=== PATIENT | female | born 2000 | race Caucasian/White ===

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

== ENCOUNTER 2022-04-03 21:57 | Emergency (ER) | payer MEDICAID, SELFPAY ==
[2022-04-03 22:14] VITALS: BMI 42.0
[2022-04-03 22:17] VITALS: BP 124/85; PULSE 98; RESP 16; TEMP 36.9; O2SAT 97
--- NOTE | 2022-04-03 22:25 | ECG_ITS ---
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 Measurements Intervals Freeman Rate: 93 P: 66 IN: 128 QRS: 61 QRSD: 89 T: 50 QT: 326 QTc: 407 Interpretive Statements SINUS RHYTHM No previous ECG available for comparison Electronically Signed On 04-04-2022 12:51:34 CDT by Naya Garza M.D. [email or web address]
== END 2022-04-04 00:01 | disposition left against medical advice (07) ==
LOC: ER 22:00
PROVIDERS: Emergency Provider Family Medicine; PCP Pediatrics
DX: Z53.21 Procedure and treatment not carried out due to patient leaving prior to being seen by health care provider (principal)
CPT/HCPCS: 93005

== ENCOUNTER 2022-04-27 17:47 | Emergency (ER) | payer MEDICAID, SELFPAY ==
[2022-04-27 17:51] VITALS: BMI 36.6
[2022-04-27 17:57] VITALS: BP 137/96; PULSE 93; RESP 18; TEMP 36.4; O2SAT 99
--- NOTE | 2022-04-27 18:05 | W.ED.FEMALGU ---
HPI - Female Genitourinary General: Chief complaint: Urogenital-Female Stated complaint: wanting test for STD Time Seen by Provider: 04/27/22 18:05 History of Present Illness: 21-year-old female comes in today with complaints of unprotected sex. Patient reports she was notified by the boy that he had an outbreak of herpes after their intercourse 2 weeks ago. Patient denies any signs or symptoms at this time. Patient appears nontoxic. Patient reports no other concerns. Associated symptoms: Deny vaginal discharge Date of Last Menstrual Period: 02/21/22 Review of Systems Const: Denies: fever(s) : Denies: difficulty voiding, dysuria, genital lesions, vaginal odor or vaginal discharge PFSH ED PFSH: Medical History Irregular menses No pertinent past medical history neghx: htn,dm,thyroid,dvt/pe Surgical History History of placement of ear tubes Patient's mother states she's had 4 different tubes placed in her ears. She's had 7 surgeries on her left ear and 6 surgeries on her right ear. All Performed in [facility] Hx of laparoscopy (~04/10/15) Laparoscopy with excision of right paratubal cyst. Performed by Dr. Clay Oleary at [facility] in [place], [place]. Hx of tonsillectomy Patient had tonsils/adnoids removed at the age of 3 and 6 per mother Family History Grandmother Breast cancer maternal--- dx at age 60 Diabetes Maternal Heart disease Maternal Hypertension Maternal Mother Diabetes Hypertension Grandfather Diabetes Maternal Family/Other Stroke Maternal Great Grandmother Denies family history of Colon cancer Ovarian cancer Clotting disorder Hypercholesteremia Uterine cancer Thyroid disease Social History Smoking and tobacco status: current every day smoker (vape) Female Reproductive History: Date of last menstrual period: 02/21/22 Physical Exam Const: COMMON NORMALS: alert HENMT: COMMON NORMALS: normocephalic HEAD & SCALP: normocephalic Neck/C-Spine: COMMON NORMALS: full ROM Resp: COMMON NORMALS: normal respiratory effort Cardio: COMMON NORMALS: regular rate RATE: regular rate GI: COMMON NORMALS: non-tender Extremity: COMMON NORMALS: normal to inspection Neuro: SENSORIUM/ORIENTATION: Yes alert Skin: COMMON NORMALS: no rashes or lesions noted GENERAL SKIN EXAM: no rashes or lesions noted Course Vital Signs: Vital signs: Vital Signs Temperature 97.6 F 04/27/22 18:56 Pulse Rate 93 04/27/22 18:56 Respiratory Rate 18 04/27/22 18:56 Blood Pressure 137/96 04/27/22 18:56 Pulse Oximetry 99 04/27/22 18:56 Oxygen Delivery Me thod 04/27/22 17:57 MDM - Female Medical Decision Making Patient comes in today for concerns of exposure to STI. On exam patient appears well. Patient denies any lesions or sores or abnormal vaginal discharge. Patient was told that the partner she had intercourse with 2 weeks ago reported herpes outbreak, and was accusing her of illness. Differential diagnosis includes worried well, STI, anxiety. Urinalysis was contaminated with large amount of skin cells, hCG was negative. Outstanding for gonorrhea and chlamydia. Reviewed exam with patient with recommendations for further evaluation with primary care regarding concern for genital herpes. Patient denied any lesions at this time so no further evaluations was recommended. Patient reported understanding and agreed to plan. Lab Data Laboratory Results Urine Color Yellow (Yellow) 04/27/22 18:05 Urine Appearance Hazy (CLEAR) A 04/27/22 18:05 Urine pH 5 (5-7) 04/27/22 18:05 Ur Specific Winfred 1.025 (1.005-1.030) 04/27/22 18:05 Urine Protein Neg (Negative) 04/27/22 18:05 Urine Glucose (UA) Norm (Normal) 04/27/22 18:05 Urine Ketones Negative (Negative) 04/27/22 18:05 Urine Blood Neg (Negative) 04/27/22 18:05 Urine Nitrate Negative (Negative) 04/27/22 18:05 Urine Bilirubin Neg (Negative) 04/27/22 18:05 Urine Urobilinogen Norm mg/dL (Negative) 04/27/22 18:05 Ur Leukocyte Esterase 2+ (Negative) H 04/27/22 18:05 Urine RBC None /hpf (0-2) 04/27/22 18:05 Urine WBC 15-25 /hpf (0-5) H 04/27/22 18:05 Ur Squamous Epith Cells 40-55 /hpf (0-5) H 04/27/22 18:05 Ur Transition Epith Cell 5-10 /hpf 04/27/22 18:05 Amorphous Sediment Not Reportable 04/27/22 18:05 Urine Bacteria 2+ /hpf (NONE) H 04/27/22 18:05 Urine Mucus 2+ /hpf 04/27/22 18:05 Urine HCG, Qual Negative (Negative) 04/27/22 18:05 Discharge Plan Discharge Patient Disposition: Home Clinical Impression: Unprotected sexual intercourse Condition: Stable Prescriptions: No Action metformin 500 mg tablet extended release 24 hr 1,000 mg PO DAILY Qty: 60 6RF medroxyprogesterone [Provera] 10 mg tablet 10 mg PO QDAY Qty: 10 6RF Rx Instructions: take as directed if no menses by cycle day#36 Discharge Orders: Discharge ED (Routine); Ordered 04/27/22 Ordered By: Timi Naranjo Referrals: Oliver Garcia MD [Primary Care Provider] - Discharge Diet: Usual diet Discharge Activity: Increase activity as tolerated Patient Instructions: Safe Sex Practices (ED) Activity Restrictions/Additional Instructions: Drink plenty of water and fluids. You should always use condoms to protect against sexually transmitted illnesses. Follow-up with primary care for concerns relating to genital herpes. Return to emergency department for new concerns. Coding Level of Care Code ED Scoop Operator for Memo Fwd Exam Comprehensive
[2022-04-27 18:49] LABS: Add Urine Microscopic? YES; Bilirubin Urine Neg (Negative); Blood Urine Neg (Negative); Glucose Urine UA Norm (Normal); Ketones Urine Negative (Negative); Leukocyte Esterase Urine 2+ (Negative); Nitrate Urine Negative (Negative); Protein Urine Neg (Negative); Specific Gravity, Urine 1.025 (1.005-1.030); Urine Appearance Hazy (CLEAR); Urine Color Yellow (Yellow); Urobilinogen Urine Norm (Negative); pH Urine 5 (5-7)
[2022-04-27 18:50] LABS: Add Urine Culture? No; Bacteria Urine 2+ /hpf; Mucus Urine 2+ /hpf; Squamous Epithelial Cell Urine 40-55 /hpf (0-5); WBC Urine 15-25 /hpf (0-5)
[2022-04-27 18:56] VITALS: BP 137/96; PULSE 93; RESP 18; TEMP 36.4; O2SAT 99
== END 2022-04-27 18:58 | disposition home or self-care (01) ==
PROVIDERS: Emergency Provider Nurse Practitioner Family; PCP Pediatrics
DX: Z20.2 Contact with and (suspected) exposure to infections with a predominantly sexual mode of transmission (principal)
CPT/HCPCS: 81001; 81025; 87491; 87591; 99283

== ENCOUNTER 2022-06-18 20:20 | Emergency (ER) | payer MEDICAID, SELFPAY ==
[2022-06-18] VITALS (13 sets, daily range): BP systolic 120–155; BP diastolic 71–91; PULSE 108; RESP 18; TEMP 36.8; O2SAT 97–98; BMI 42.0
[2022-06-18 21:01] LABS: Basophils % 0.3 %; Eosinophils # 0.1 10^3/uL (0.0-0.8); Eosinophils % 0.8 %; Hematocrit 45.1 % (37.0-47.0); Lymphocytes # 4.1 10^3/uL (1.5-6.5); Lymphocytes % 42.8 %; Mean Corpuscular HGB Conc 33.3 g/dL (30.0-36.0); Mean Corpuscular Hemoglobin 30.5 pg (28.0-34.0); Mean Corpuscular Volume 91.7 fl (81-99); Mean Platelet Volume 9.3 fL (7.4-10.4); Monocytes # 0.8 10^3/uL (0.2-0.9); Monocytes % 8.1 %; Neutrophils # 4.53 10^3/uL (1.8-8.0); Neutrophils % 47.2 %; Nucleated Red Blood Cells % 0 %; Platelet Count 306 10^3/cmm (130-400); Red Blood Count 4.92 10^6/uL (4.1-5.3); Red Cell Distribution Width 12.7 % (12.1-15.1); White Blood Count 9.6 10^3/uL (4.5-13.0)
[2022-06-18 21:16] LABS: HCG, Serum Qual Negative (Negative)
[2022-06-18 21:29] LABS: Alanine Aminotransferase 56 U/L (0-33); Albumin Level 4.5 g/dL (3.5-5.2); Alkaline Phosphatase 86 U/L (35-105); Anion Gap 14.3 (5-19); Aspartate Amino Transferase 32 U/L (0-32); Blood Urea Nitrogen 13 mg/dL (6-20); Calcium 9.5 mg/dL (8.5-10.5); Carbon Dioxide 28 mmol/L (22-29); Chloride 102 mmol/L (98-107); Globulin 2.6 g/dL (1.3-4.6); Glomerular Filtration Rate 107.8 mL/min (90-130); Glucose 93 mg/dL (65-115); Lipase 21 U/L (13-60); Osmolality Calculated 290 mOsm/kg (285-295); Potassium 4.3 mmol/L (3.5-5.1); Sodium 140 mmol/L (136-145); Total Bilirubin 0.8 mg/dL (0.15-1.2); Total Protein 7.1 g/dL (6.6-8.7)
--- NOTE | 2022-06-18 21:30 | USR_ITS ---
PROCEDURE INFORMATION: Exam: US Pelvis Complete, Transabdominal and US Pelvis, Transvaginal and US Duplex Artery and Vein, Ovaries, Complete Exam date and time: 06/18/2022 10:51 PM Age: 21 years old Clinical indication: Pelvic pain; Prior surgery; Surgery date: 6+ months; Surgery type: Priors here in September 2020 and October 2020 with similar symptoms. Long history of irregular menses, lmp feb 25, 2022. Neg hcg today. She had laparoscopic surgery 2016 to remove a baseball sized cyst on my left fallopian tube. not taking any bcps or hormones. Nulligravida. ; Additional info: Pelvic pain h/o ovarian cysts TECHNIQUE: Imaging protocol: Real-time complete transabdominal and transvaginal pelvic ultrasound with image documentation. Transvaginal imaging was used for better evaluation of the endometrium, adnexa, and/or cervix. Real-time duplex ultrasound scan of the arterial and venous flow of the ovaries with B-mode, color Doppler flow and spectral waveform analysis. Duplex exam was performed to evaluate for torsion and other vascular conditions. COMPARISON: US pelvic complete* [id number] 09/25/2017 3:22 PM FINDINGS: Uterus: Uterus is normal. Endometrial stripe is normal. Multiple simple cervical nabothian cysts. Right ovary/adnexa: Ovary is unremarkable. Dominant simple follicle 2.5 cm diameter. No solid mass. Normal ovarian blood flow. Unremarkable arterial and venous spectral Doppler waveform pattern. Left ovary/adnexa: Ovary is normal. No mass. Normal ovarian blood flow. Unremarkable arterial and venous spectral Doppler waveform pattern. Intraperitoneal space: No intraperitoneal fluid. Urinary bladder: Normal. US/US pelvic complete* [id number] IMPRESSION: No acute findings.
[2022-06-18 21:49] LABS: HCG Qualitative Urine. Negative (Negative)
[2022-06-18 21:53] LABS: Add Urine Microscopic? NO; Charge for UA Resulting for Rev
--- NOTE | 2022-06-18 21:55 | W.ED.ABDPA2 ---
Documented by User: Alejandrina Sanches MD 06/18/22 21:59 HPI - Abdominal Pain General: Chief Complaint: Abdominal Pain Stated Complaint: abdomen pain Time Seen by Provider: 06/18/22 21:09 History of Present Illness: 89-year-old female who presents with left-sided pelvic pain which started earlier in the day today. She states initially it was crampy in nature but not become severe, sharp and stabbing. She has history of ovarian cyst with similar pain. She states her last menstrual period was 2 months ago. Its regular for her to have irregular periods. She denies dysuria or hematuria. She states her bowel movements have been normal. Associated Symptoms: Denies bloating, constipation, diarrhea, dysuria, fever(s), nausea and vomiting Related Data: Date of Last Menstrual Period: 02/21/22 Review of Systems Const: Denies: fever(s), change in appetite or change in weight GI: Reports: abdominal pain; Denies: nausea, vomiting, diarrhea, constipation, bloating or pain on defecation : Reports: irregular period and pelvic pain; Denies: difficulty voiding, dysuria, urinary urgency, urinary hesitancy, vaginal discharge or dysmenorrhea Neuro: Denies: headache(s) Psych: Denies: anxiety or depression PFSH ED PFSH: Medical History Irregular menses No pertinent past medical history neghx: htn,dm,thyroid,dvt/pe Surgical History History of placement of ear tubes Patient's mother states she's had 4 different tubes placed in her ears. She's had 7 surgeries on her left ear and 6 surgeries on her right ear. All Performed in [facility] Hx of laparoscopy (~04/10/15) Laparoscopy with excision of right paratubal cyst. Performed by Dr. Clay Oleary at [facility] in [place], [place]. Hx of tonsillectomy Patient had tonsils/adnoids removed at the age of 3 and 6 per mother Family History Grandmother Breast cancer maternal--- dx at age 60 Diabetes Maternal Heart disease Maternal Hypertension Maternal Mother Diabetes Hypertension Grandfather Diabetes Maternal Family/Other Stroke Maternal Great Grandmother Denies family history of Colon cancer Ovarian cancer Clotting disorder Hypercholesteremia Uterine cancer Thyroid disease Social History Smoking and tobacco status: current every day smoker (vape) Female Reproductive History: Date of last menstrual period: 02/21/22 Physical Exam Const: COMMON NORMALS: alert HENMT: COMMON NORMALS: normocephalic HEAD & SCALP: normocephalic Neck/C-Spine: COMMON NORMALS: full ROM Resp: COMMON NORMALS: normal respiratory effort Cardio: COMMON NORMALS: regular rate RATE: regular rate GI: COMMON NORMALS: Normal to inspection, nondistended, normoactive bowel sounds present and Soft to palpation; negative for non-tender (tenderness in the LLQ; no rebound or guarding) PALPATION: Yes Soft to palpation Extremity: COMMON NORMALS: normal to inspection Neuro: SENSORIUM/ORIENTATION: Yes alert Skin: COMMON NORMALS: no rashes or lesions noted GENERAL SKIN EXAM: no rashes or lesions noted Course Vital Signs: Vital signs: Vital Signs Temperature 98.3 F 06/18/22 20:41 Pulse Rate 108 H 06/18/22 20:41 Respiratory Rate 18 06/18/22 20:41 Blood Pressure 155/89 06/18/22 22:15 Pulse Oximetry 97 06/18/22 21:50 Oxygen Delivery Me thod 06/18/22 20:41 MDM - Abdominal Pain Medical Decision Making 21-year-old female who presents with left lower quadrant/left adnexal pain. Abdomen is soft, nonsurgical. She does have tenderness in the left suprapubic region. Differential includes ovarian cyst, ovarian torsion, ectopic , UTI, renal colic, constipation. We will obtain a urinalysis, urine test and pelvic ultrasound. We will give her IM Toradol for pain Lab Data 06/18/22 20:50 06/18/22 20:50 Labs/Radiology: Radiology Impressions Pelvis Ultrasound 06/18/22 21:30 IMPRESSION: No acute findings. Laboratory Results WBC 9.6 10^3/uL (4.5-13.0) 06/18/22 20:50 RBC 4.92 10^6/uL (4.1-5.3) 06/18/22 20:50 Hgb 15.0 g/dL (11.5-15.3) 06/18/22 20:50 Hct 45.1 % (37.0-47.0) 06/18/22 20:50 MCV 91.7 fl (81-99) 06/18/22 20:50 MCH 30.5 pg (28.0-34.0) 06/18/22 20:50 MCHC 33.3 g/dL (30.0-36.0) 06/18/22 20:50 RDW 12.7 % (12.1-15.1) 06/18/22 20:50 Plt Count 306 10^3/cmm (130-400) 06/18/22 20:50 MPV 9.3 fL (7.4-10.4) 06/18/22 20:50 Neut % (Auto) 47.2 % 06/18/22 20:50 Lymph % (Auto) 42.8 % 06/18/22 20:50 [place] % (Auto) 8.1 % 06/18/22 20:50 Eos % (Auto) 0.8 % 06/18/22 20:50 Baso % (Auto) 0.3 % 06/18/22 20:50 Neut # (Auto) 4.53 10^3/uL (1.8-8.0) 06/18/22 20:50 Lymph # (Auto) 4.1 10^3/uL (1.5-6.5) 06/18/22 20:50 [place] # (Auto) 0.8 10^3/uL (0.2-0.9) 06/18/22 20:50 Eos # (Auto) 0.1 10^3/uL (0.0-0.8) 06/18/22 20:50 Baso # (Auto) 0.0 10^3/uL (0.0-0.1) 06/18/22 20:50 Nucleated RBC % (auto) 0 % 06/18/22 20:50 Nucleated RBCs # 0.0 /100WBC 06/18/22 20:50 Sodium 140 mmol/L (136-145) 06/18/22 20:50 Potassium 4.3 mmol/L (3.5-5.1) 06/18/22 20:50 Chloride 102 mmol/L (98-107) 06/18/22 20:50 Carbon Dioxide 28 mmol/L (22-29) 06/18/22 20:50 Anion Gap 14.3 (5-19) 06/18/22 20:50 BUN 13 mg/dL (6-20) 06/18/22 20:50 Creatinine 0.7 mg/dL (0.5-0.9) 06/18/22 20:50 GFR Calculation 107.8 mL/min (90-130) 06/18/22 20:50 Glucose 93 mg/dL (65-115) 06/18/22 20:50 Calculated Osmolality 290 mOsm/kg (285-295) 06/18/22 20:50 Calcium 9.5 mg/dL (8.5-10.5) 06/18/22 20:50 Total Bilirubin 0.8 mg/dL (0.15-1.2) 06/18/22 20:50 AST 32 U/L (0-32) 06/18/22 20:50 ALT 56 U/L (0-33) H 06/18/22 20:50 Alkaline Phosphatase 86 U/L (35-105) 06/18/22 20:50 Total Protein 7.1 g/dL (6.6-8.7) 06/18/22 20:50 Albumin 4.5 g/dL (3.5-5.2) 06/18/22 20:50 Globulin 2.6 g/dL (1.3-4.6) 06/18/22 20:50 Lipase 21 U/L (13-60) 06/18/22 20:50 HCG, Qual Negative (Negative) 06/18/22 20:50 Urine Color Yellow (Yellow) 06/18/22 19:33 Urine Appearance Sl hazy (CLEAR) A 06/18/22 19:33 Urine pH 5 (5-7) 06/18/22 19:33 Ur Specific [place] 1.020 (1.005-1.030) 06/18/22 19:33 Urine Protein Neg (Negative) 06/18/22 19:33 Urine Glucose (UA) Norm (Normal) 06/18/22 19:33 Urine Ketones Negative (Negative) 06/18/22 19:33 Urine Blood Neg (Negative) 06/18/22 19:33 Urine Nitrate Negative (Negative) 06/18/22 19:33 Urine Bilirubin Neg (Negative) 06/18/22 19:33 Urine Urobilinogen Norm mg/dL (Negative) 06/18/22 19:33 Ur Leukocyte Esterase Negative (Negative) 06/18/22 19:33 Discharge Plan Discharge Patient Disposition: Home Clinical Impression: Pelvic pain Condition: Stable Prescriptions: New hydrocodone-acetaminophen 5-325 mg tablet 1 tab PO Q6H PRN (Reason: pain) Qty: 14 0RF No Action metformin 500 mg tablet extended release 24 hr 1,000 mg PO DAILY Qty: 60 6RF medroxyprogesterone [Provera] 10 mg tablet 10 mg PO QDAY Qty: 10 6RF Rx Instructions: take as directed if no menses by cycle day#36 Discharge Orders: Discharge ED (Routine); Ordered 06/18/22 Ordered By: Manuel Cross Discharge Diet: Advance as tolerated Discharge Activity: Resume usual activity Patient Instructions: Pelvic Pain in Women (ED), Opioid Safety, Pain Management Activity Restrictions/Additional Instructions: tylenol / ibuprofen as needed for pain, return if increased pain, fever, vomiting. Follow up in 1-2 weeks with your primary care doctor Stand Alone Forms: Work/School Release Coding Level of Care Code ED Information Analyst for Chg Fwd Exam Comprehensive Documented by User: Manuel Cross MD 06/18/22 23:58 HPI - Abdominal Pain General: Chief Complaint: Abdominal Pain Stated Complaint: abdomen pain Time Seen by Provider: 06/18/22 21:09 [facility] ED PFSH: Medical History Irregular menses No pertinent past medical history neghx: htn,dm,thyroid,dvt/pe Surgical History History of placement of ear tubes Patient's mother states she's had 4 different tubes placed in her ears. She's had 7 surgeries on her left ear and 6 surgeries on her right ear. All Performed in [facility] Hx of laparoscopy (~04/10/15) Laparoscopy with excision of right paratubal cyst. Performed by Dr. Clay Oleary at [facility] in [place], [place]. Hx of tonsillectomy Patient had tonsils/adnoids removed at the age of 3 and 6 per mother Family History Grandmother Breast cancer maternal--- dx at age 60 Diabetes Maternal Heart disease Maternal Hypertension Maternal Mother Diabetes Hypertension Grandfather Diabetes Maternal Family/Other Stroke Maternal Great Grandmother Denies family history of Colon cancer Ovarian cancer Clotting disorder Hypercholesteremia Uterine cancer Thyroid disease Social History Smoking and tobacco status: current every day smoker (vape) Course Vital Signs: Vital signs: Vital Signs Temperature 98.3 F 06/18/22 20:41 Pulse Rate 108 H 06/18/22 20:41 Respiratory Rate 18 06/18/22 20:41 Blood Pressure 155/89 06/18/22 22:15 Pulse Oximetry 97 06/18/22 21:50 Oxygen Delivery Me thod 06/18/22 20:41 MDM - Abdominal Pain Medical Decision Making 21-year-old female who presents with left lower quadrant/left adnexal pain. Abdomen is soft, nonsurgical. She does have tenderness in the left suprapubic region. Differential includes ovarian cyst, ovarian torsion, ectopic , UTI, renal colic, constipation. We will obtain a urinalysis, urine test and pelvic ultrasound. We will give her IM Toradol for pain Patient's ultrasound here is normal her pains improved she stable for discharge she is to follow-up with PCP and return if worsening. Lab Data 06/18/22 20:50 06/18/22 20:50 Labs/Radiology: Radiology Impressions Pelvis Ultrasound 06/18/22 21:30 IMPRESSION: No acute findings. Laboratory Results WBC 9.6 10^3/uL (4.5-13.0) 06/18/22 20:50 RBC 4.92 10^6/uL (4.1-5.3) 06/18/22 20:50 Hgb 15.0 g/dL (11.5-15.3) 06/18/22 20:50 Hct 45.1 % (37.0-47.0) 06/18/22 20:50 MCV 91.7 fl (81-99) 06/18/22 20:50 MCH 30.5 pg (28.0-34.0) 06/18/22 20:50 MCHC 33.3 g/dL (30.0-36.0) 06/18/22 20:50 RDW 12.7 % (12.1-15.1) 06/18/22 20:50 Plt Count 306 10^3/cmm (130-400) 06/18/22 20:50 MPV 9.3 fL (7.4-10.4) 06/18/22 20:50 Neut % (Auto) 47.2 % 06/18/22 20:50 Lymph % (Auto) 42.8 % 06/18/22 20:50 [place] % (Auto) 8.1 % 06/18/22 20:50 Eos % (Auto) 0.8 % 06/18/22 20:50 Baso % (Auto) 0.3 % 06/18/22 20:50 Neut # (Auto) 4.53 10^3/uL (1.8-8.0) 06/18/22 20:50 Lymph # (Auto) 4.1 10^3/uL (1.5-6.5) 06/18/22 20:50 [place] # (Auto) 0.8 10^3/uL (0.2-0.9) 06/18/22 20:50 Eos # (Auto) 0.1 10^3/uL (0.0-0.8) 06/18/22 20:50 Baso # (Auto) 0.0 10^3/uL (0.0-0.1) 06/18/22 20:50 Nucleated RBC % (auto) 0 % 06/18/22 20:50 Nucleated RBCs # 0.0 /100WBC 06/18/22 20:50 Sodium 140 mmol/L (136-145) 06/18/22 20:50 Potassium 4.3 mmol/L (3.5-5.1) 06/18/22 20:50 Chloride 102 mmol/L (98-107) 06/18/22 20:50 Carbon Dioxide 28 mmol/L (22-29) 06/18/22 20:50 Anion Gap 14.3 (5-19) 06/18/22 20:50 BUN 13 mg/dL (6-20) 06/18/22 20:50 Creatinine 0.7 mg/dL (0.5-0.9) 06/18/22 20:50 GFR Calculation 107.8 mL/min (90-130) 06/18/22 20:50 Glucose 93 mg/dL (65-115) 06/18/22 20:50 Calculated Osmolality 290 mOsm/kg (285-295) 06/18/22 20:50 Calcium 9.5 mg/dL (8.5-10.5) 06/18/22 20:50 Total Bilirubin 0.8 mg/dL (0.15-1.2) 06/18/22 20:50 AST 32 U/L (0-32) 06/18/22 20:50 ALT 56 U/L (0-33) H 06/18/22 20:50 Alkaline Phosphatase 86 U/L (35-105) 06/18/22 20:50 Total Protein 7.1 g/dL (6.6-8.7) 06/18/22 20:50 Albumin 4.5 g/dL (3.5-5.2) 06/18/22 20:50 Globulin 2.6 g/dL (1.3-4.6) 06/18/22 20:50 Lipase 21 U/L (13-60) 06/18/22 20:50 HCG, Qual Negative (Negative) 06/18/22 20:50 Urine Color Yellow (Yellow) 06/18/22 19:33 Urine Appearance Sl hazy (CLEAR) A 06/18/22 19:33 Urine pH 5 (5-7) 06/18/22 19:33 Ur Specific [place] 1.020 (1.005-1.030) 06/18/22 19:33 Urine Protein Neg (Negative) 06/18/22 19:33 Urine Glucose (UA) Norm (Normal) 06/18/22 19:33 Urine Ketones Negative (Negative) 06/18/22 19:33 Urine Blood Neg (Negative) 06/18/22 19:33 Urine Nitrate Negative (Negative) 06/18/22 19:33 Urine Bilirubin Neg (Negative) 06/18/22 19:33 Urine Urobilinogen Norm mg/dL (Negative) 06/18/22 19:33 Ur Leukocyte Esterase Negative (Negative) 06/18/22 19:33 Discharge Plan Discharge Patient Disposition: Home Clinical Impression: Pelvic pain Condition: Stable Prescriptions: New hydrocodone-acetaminophen 5-325 mg tablet 1 tab PO Q6H PRN (Reason: pain) Qty: 14 0RF No Action metformin 500 mg tablet extended release 24 hr 1,000 mg PO DAILY Qty: 60 6RF medroxyprogesterone [Provera] 10 mg tablet 10 mg PO QDAY Qty: 10 6RF Rx Instructions: take as directed if no menses by cycle day#36 Discharge Orders: Discharge ED (Routine); Ordered 06/18/22 Ordered By: Manuel Cross Discharge Diet: Advance as tolerated Discharge Activity: Resume usual activity Patient Instructions: Pelvic Pain in Women (ED), Opioid Safety, Pain Management Activity Restrictions/Additional Instructions: tylenol / ibuprofen as needed for pain, return if increased pain, fever, vomiting. Follow up in 1-2 weeks with your primary care doctor Stand Alone Forms: Work/School Release Coding Level of Care Code ED Information Analyst for Memo Fwd Exam Comprehensive
[2022-06-18 22:18] LABS: Bilirubin Urine Neg (Negative); Blood Urine Neg (Negative); Glucose Urine UA Norm (Normal); Ketones Urine Negative (Negative); Leukocyte Esterase Urine Negative (Negative); Nitrate Urine Negative (Negative); Protein Urine Neg (Negative); Urine Appearance SL Hazy (CLEAR); Urine Color Yellow (Yellow); Urobilinogen Urine Norm (Negative); pH Urine 5 (5-7)
[2022-06-18] MEDS: ketorolac 30 mg/mL INJ IM (22:22)
== END 2022-06-19 00:39 | disposition home or self-care (01) ==
PROVIDERS: Emergency Medicine; Emergency Provider Emergency Medicine
DX: R10.2 Pelvic and perineal pain (principal); Z79.84 Long term (current) use of oral hypoglycemic drugs; F17.290 Nicotine dependence, other tobacco product, uncomplicated
CPT/HCPCS: 36415; 76856; 80053; 81003; 81025; 83690; 84703; 85025; 96372; 99285; J1885

== ENCOUNTER 2022-07-18 16:20 | Emergency (ER) | payer MEDICAID, SELFPAY ==
[2022-07-18 16:31] VITALS: BP 119/80; PULSE 94; RESP 16; TEMP 36.8; O2SAT 95; BMI 41.5
--- NOTE | 2022-07-18 16:42 | XRR_ITS ---
PROCEDURE INFORMATION: Exam: XR Left Knee Exam date and time: 07/18/2022 5:20 PM Age: 21 years old Clinical indication: Injury or trauma; Fall; Blunt trauma; Knee; Left; Injury date: Today; Additional info: Fall/injury TECHNIQUE: Imaging protocol: Radiologic exam of the Left knee. Views: 3 views. COMPARISON: No relevant prior studies available. FINDINGS: Bones/joints: Normal. Soft tissues: Normal. XR/XR knee LT 3V* [id number] IMPRESSION: No acute findings.
--- NOTE | 2022-07-18 17:24 | ED_ITS ---
HPI - Extremity Problem General: Chief complaint: Extremity Injury, Lower Stated complaint: Fell on left knee on ice Time Seen by Provider: 07/18/22 17:24 History of Present Illness: 21-year-old female comes in today with injury to the left knee that occurred this morning around 11:00. Patient reports that her knee gave out on her and she fell to the ground striking her knee against the ground. Patient has an abrasion and some bruising to the area of the kneecap. Patient reports pain to the medial aspect of the knee. Patient is weightbearing without difficulty. Review of Systems Musc: Reports: extremity pain PFSH ED PFSH: Medical History Irregular menses No pertinent past medical history neghx: htn,dm,thyroid,dvt/pe Surgical History History of placement of ear tubes Patient's mother states she's had 4 different tubes placed in her ears. She's had 7 surgeries on her left ear and 6 surgeries on her right ear. All P erformed in [facility] Hx of laparoscopy (~04/10/15) Laparoscopy with excision of right paratubal cyst. Performed by Dr. Clay Oleary at [facility] in [place], [place]. Hx of tonsillectomy Patient had tonsils/adnoids removed at the age of 3 and 6 per mother Family History Grandmother Breast cancer maternal--- dx at age 60 Diabetes Maternal Heart disease Maternal Hypertension Maternal Mother Diabetes Hypertension Grandfather Diabetes Maternal Family/Other Stroke Maternal Great Grandmother Denies family history of Colon cancer Ovarian cancer Clotting disorder Hypercholesteremia Uterine cancer Thyroid disease Social History Smoking and tobacco status: current every day smoker (vape) Female Reproductive History: Date of last menstrual period: 02/21/22 Physical Exam Const: COMMON NORMALS: alert HENMT: COMMON NORMALS: normocephalic HEAD & SCALP: normocephalic Neck/C-Spine: COMMON NORMALS: full ROM Resp: COMMON NORMALS: normal respiratory effort and clear to auscultation bilaterally AUSCULTATION: clear to auscultation bilaterally Cardio: COMMON NORMALS: regular rate and regular rhythm RATE: regular rate RHYTHM: regular rhythm Back/Pelvis: COMMON NORMALS: thoracic and lumbar spine normal to inspection Extremity: COMMON NORMALS: full ROM LEFT LOWER EXTREMITY: Yes knee joint (3 cm circular anterior abrasion with ecchymosis, medial joint line tenderne) Left knee: Yes inspection, Yes palpation and Yes ROM (Normal range of motion) Neuro: SENSORIUM/ORIENTATION: Yes alert Skin: TRAUMA: abrasion (Left anterior knee) Course Vital Signs: Vital signs: Vital Signs Temperature 98.3 F 07/18/22 16:31 Pulse Rate 94 07/18/22 16:31 Respiratory Rate 16 07/18/22 16:31 Blood Pressure 119/80 07/18/22 16:31 Pulse Oximetry 95 07/18/22 16:31 Oxygen Delivery Me thod 07/18/22 16:31 MDM - Extremity (Nontraumatic) Medical Decision Making 21-year-old female comes in today with injury to the left anterior knee. Patient had tripped and fell at work striking her knee against the ground. Patient reported some medial knee joint line discomfort. On exam we note the abrasion with some ecchymosis to the anterior knee in the area of the patella. Tenderness is noted on palpation without any or significant swelling. Differential diagnosis includes contusion, meniscal injury, fracture, sprain. X-ray noted no bony abnormality. Reviewed exam with patient recommended treatment for contusion of the knee. Recommend activity as tolerated. Recommend follow-up with primary care for further instructions. Patient reported understanding and agreed to plan. Lab Data Radiology Impressions Knee X-Ray 07/18/22 16:42 IMPRESSION: No acute findings. Discharge Plan Discharge Patient Disposition: Home Clinical Impression: Contusion of knee, left Qualifiers: Encounter type: initial encounter Qualified Code(s): S80.02XA - Contusion of left knee, initial encounter Condition: Stable Prescriptions: No Action metformin 500 mg tablet extended release 24 hr 1,000 mg PO DAILY Qty: 60 6RF medroxyprogesterone [Provera] 10 mg tablet 10 mg PO QDAY Qty: 10 6RF Rx Instructions: take as directed if no menses by cycle day#36 hydrocodone-acetaminophen 5-325 mg tablet 1 tab PO Q6H PRN (Reason: pain) Qty: 14 0RF Discharge Orders: Discharge ED (Routine); Ordered 07/18/22 Ordered By: Timi Naranjo Discharge Diet: Usual diet Discharge Activity: Increase activity as tolerated Patient Instructions: Contusion in Adults (ED) Activity Restrictions/Additional Instructions: Home and rest. Activity as tolerated. Ice or heat to the knee for comfort. Acetaminophen or ibuprofen for pain. Follow-up with primary care as needed. Return to ED for new concerns. Stand Alone Forms: Work/School Release Coding Level of Care Code ED Human Resources Project Coordinator for Chg Fwd Exam Comprehensive
== END 2022-07-18 17:54 | disposition home or self-care (01) ==
PROVIDERS: Emergency Provider Nurse Practitioner Family
DX: S80.02XA Contusion of left knee, initial encounter (principal); F17.290 Nicotine dependence, other tobacco product, uncomplicated; W18.30XA Fall on same level, unspecified, initial encounter
CPT/HCPCS: 73562; 99283

== ENCOUNTER 2022-10-01 23:09 | Emergency (ER) | payer MEDICAID, SELFPAY ==
[2022-10-01 23:15] VITALS: BP 150/96; PULSE 119; RESP 16; TEMP 36.6; O2SAT 97; BMI 42.0
--- NOTE | 2022-10-01 23:33 | ED_ITS ---
HPI - Headache General: Chief Complaint: Headache Stated Complaint: Migrane Time Seen by Provider: 10/01/22 23:23 History of Present Illness: Patient is a 22-year-old female comes to the ED with migraine headache. Patient has a history of migraine headaches and says this is just like her past migraines. Headache started tonight at around 8 PM. She rates her headache currently an 8 out of 10. Headache starts at the base of her neck and radiates up into the back of her head and goes all the way around to the front of her head and right behind her eyes. She endorses nausea and had an episode of emesis tonight. She took some naproxen and that did not provide any relief so she tried to take her sumatriptan but threw it up. Endorses worsening headache with loud noises and lights. Patient is here in the ED to get sumatriptan injection to help with her migraine. Denies any vision changes, numbness tingling or weakness to 1 side of her face or body. Associated symptoms: Reports nausea and vomiting (1 episode of emesis); Deny chest pain, fever(s) or rash Review of Systems Const: Denies: fever(s), chills or fatigue Eyes: Reports: photophobia; Denies: change in vision or eye discomfort ENMT: Denies: throat pain, odynophagia, nasal discharge or nasal congestion Card: Denies: chest pain, palpitations, edema, swelling of feet/ankles, dyspnea on exertion or orthopnea Resp: Denies: dyspnea, productive cough or non-productive cough GI: Reports: nausea and vomiting (1 episode of emesis); Denies: abdominal pain, diarrhea, constipation or hematochezia : Denies: flank pain, dysuria or hematuria Musc: Denies: neck pain, back pain or extremity swelling Skin/Breast: Denies: rash or new lesions Neuro: Reports: headache(s); Denies: numbness in extremities or weakness in extremities [facility] ED PFSH: Medical History Irregular menses No pertinent past medical history neghx: htn,dm,thyroid,dvt/pe Tension headache (~2022) Surgical History History of placement of ear tubes Patient's mother states she's had 4 different tubes placed in her ears. She's had 7 surgeries on her left ear and 6 surgeries on her right ear. All Performed in [facility] Hx of laparoscopy (~04/10/15) Laparoscopy with excision of right paratubal cyst. Performed by Dr. Clay Oleary at [facility] in [place], [place]. Hx of tonsillectomy Patient had tonsils/adnoids removed at the age of 3 and 6 per mother Family History Grandmother Breast cancer maternal--- dx at age 60 Diabetes Maternal Heart disease Maternal Hypertension Maternal Mother Diabetes Hypertension Grandfather Diabetes Maternal Family/Other Stroke Maternal Great Grandmother Denies family history of Colon cancer Ovarian cancer Clotting disorder Hypercholesteremia Uterine cancer Thyroid disease Physical Exam Const: COMMON NORMALS: no acute distress, patient oriented x3 and alert GENERAL APPEARANCE: cooperative and comfortable HENMT: COMMON NORMALS: normocephalic HEAD & SCALP: normocephalic MOUTH: Normal oral and palatal mucosa present THROAT: posterior oropharynx normal and uvula midline Eye: COMMON NORMALS: EOMs intact bilaterally GENERAL EYE: appearance normal, both eyes and all related structures Neck/C-Spine: COMMON NORMALS: supple GENERAL: Yes normal visual inspection Resp: COMMON NORMALS: normal respiratory effort, No retractions, No use of accessory muscles and clear to auscultation bilaterally AUSCULTATION: clear to auscultation bilaterally Cardio: COMMON NORMALS: regular rate, regular rhythm, S1 normal heart sound present, S2 normal heart sound present, No gallops present (Cardio), No clicks present (Cardio), No murmurs present (Cardio) and Peripheral pulses 2+ throughout RATE: regular rate RHYTHM: regular rhythm HEART SOUNDS: S1 normal heart sound present and S2 normal heart sound present PERIPHERAL PULSES: Peripheral pulses 2+ throughout GI: COMMON NORMALS: Normal to inspection, nondistended, normoactive bowel sounds present, Soft to palpation, non-tender and no masses PALPATION: Yes Soft to palpation : COMMON NORMALS: Yes no CVA tenderness BLADDER/KIDNEY EXAM: Yes no CVA tenderness Back/Pelvis: COMMON NORMALS: no CVA tenderness Extremity: COMMON NORMALS: normal to inspection Neuro: COMMON NORMALS: patient oriented x3, CN's II-XII intact bilaterally, moves all extremities, no focal motor deficits and no sensory deficits noted SENSORIUM/ORIENTATION: Yes alert COORDINATION/BALANCE: [id number] test normal SPEECH: speech normal GAIT: Yes Normal gait present MOTOR EXAM: 5/5 motor strength present throughout COORDINATION: [id number] test normal Skin: GENERAL SKIN EXAM: dry skin Course Vital Signs: Vital signs: Vital Signs Temperature 97.9 F 10/01/22 23:15 Pulse Rate 119 H 10/01/22 23:15 Respiratory Rate 16 10/01/22 23:15 Blood Pressure 150/96 10/01/22 23:15 Pulse Oximetry 97 10/01/22 23:15 Oxygen Delivery Me thod 10/01/22 23:15 MDM - Headache Medical Decision Making Patient is a 22-year-old female comes to the ED with migraine headache. Patient has a history of migraine headaches and says this is just like her past migraines. Headache started tonight at around 8 PM. She rates her headache currently an 8 out of 10. Headache starts at the base of her neck and radiates up into the back of her head and goes all the way around to the front of her head and right behind her eyes. She endorses nausea and had an episode of emesis tonight. She took some naproxen and that did not provide any relief so she tried to take her sumatriptan but threw it up. Endorses worsening headache with loud noises and lights. Patient is here in the ED to get sumatriptan injection to help with her migraine. Denies any vision changes, numbness tingling or weakness to 1 side of her face or body. Vitals are stable. Exam of patient is benign and neuro exam shows no deficits. Patient was given subcu dose of sumatriptan here in the ED and her symptoms improved. She was stable for discharge home. Told to follow-up with her PCP in the next week for reevaluation. Return to ED precautions given. Patient understood and agreed with plan. Discharge Plan Discharge Patient Disposition: Home Clinical Impression: Migraine Qualifiers: Migraine type: without aura Status migrainosus presence: without status migrainosus Intractability: not intractable Qualified Code(s): G43.009 - Migraine without aura, not intractable, without status migrainosus Condition: Stable Prescriptions: No Action sumatriptan succinate 50 mg tablet 50 mg PO Q2H PRN Rx Instructions: do not exceed 4 doses per 24 hrs naproxen 500 mg tablet 500 mg PO BID medroxyprogesterone [Provera] 10 mg tablet 10 mg PO QDAY Qty: 10 0RF Discharge Orders: Discharge ED (Routine); Ordered 10/02/22 Ordered By: Mil Almeida Discharge Diet: Regular Discharge Activity: Increase activity as tolerated Patient Instructions: Headache - Migraine (Adult) Activity Restrictions/Additional Instructions: Follow-up with medical provider as directed in the next 5 to 7 days for reevaluation. Continue taking all home medications as previously prescribed. Return to the ER or your medical provider if condition worsens. Please read and understand discharge instructions. Thank you for choosing [facility] for your healthcare needs today. Please realize this is an emergency room and that we are providing you with a medical screening exam and this may not be complete and all inclusive of all the testing and or work up that you may need to determine your ailment or severity of your illness. It is very important that you follow up as instructed or that you return to the Emergency Department should you have concerns or if your condition changes or worsens in any way. 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
[2022-10-01] MEDS: SUMAtriptan 6 mg/0.5 mL SDV SUBCUT (23:41)
--- NOTE | 2022-10-08 14:44 | DCPLANNER ---
manager voice called patient due to no primary care physician - patient stated that she is working on getting established with someone. 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
== END 2022-10-02 00:45 | disposition home or self-care (01) ==
PROVIDERS: Emergency Provider Physician Assistant
DX: G43.009 Migraine without aura, not intractable, without status migrainosus (principal)
CPT/HCPCS: 96372; 99284; J3030

== ENCOUNTER 2023-10-23 23:17 | Emergency (ER) | payer SELFPAY ==
--- NOTE | 2023-10-23 23:19 | XRR_ITS ---
PROCEDURE INFORMATION: Exam: XR Chest Exam date and time: 10/23/2023 11:51 PM Age: 23 years old Clinical indication: Angina; Additional info: Cp TECHNIQUE: Imaging protocol: Radiologic exam of the chest. Views: 1 view. COMPARISON: CT abdomen pelvis w con* [id number] 09/30/2020 6:22 PM FINDINGS: Lungs: Unremarkable. No consolidation. Pleural spaces: Unremarkable. No pleural effusion. No pneumothorax. Heart/Mediastinum: Unremarkable. No cardiomegaly. Bones/joints: Unremarkable. XR/XR chest 1V portable [id number] IMPRESSION: No acute findings.
--- NOTE | 2023-10-23 23:22 | ECG_ITS ---
[facility] Test Date: 2023-10-23 Pat Name: Richa Berumen Department: Room: Gender: Female Cst: : 2000 Requested By: Manuel Cross Order Number: [id number] Jarad MD: Mitchell Jurado M.D. Measurements Intervals [place] Rate: 101 P: 47 DE: 136 QRS: 44 QRSD: 95 T: 38 QT: 331 QTc: 431 Interpretive Statements SINUS TACHYCARDIA Compared to ECG 04/03/2022 22:25:54 Sinus rhythm no longer present Electronically Signed On 10-24-2023 14:26:42 CDT by Mitchell Jurado M.D. [id number]
[2023-10-23 23:23] VITALS: BP 146/93; PULSE 106; RESP 16; TEMP 36.7; O2SAT 97
--- NOTE | 2023-10-23 23:49 | W.ED.CHESTPA ---
HPI - Chest Pain General: Chief Complaint: Chest Pain Stated Complaint: Hurts to Breath\Chest Pains Time Seen by Provider: 10/23/23 23:29 Source: patient Mode of arrival: ambulatory Limitations: no limitations History of Present Illness: 23-year-old female who states that over the last couple hours she has been having some left-sided chest pains been sharp in nature she states it has been worse with inspiration along with movement of her arm. She denies any shortness of breath denies any cough or fever. Associated symptoms: Deny abdominal pain, fever(s), nausea or vomiting Review of Systems Const: Denies: fever(s), chills, body aches or change in appetite ENMT: Denies: throat pain or dental pain Card: Reports: chest pain GI: Denies: abdominal pain, nausea, vomiting or diarrhea : Denies: dysuria Musc: Denies: neck pain or back pain Skin/Breast: Denies: rash Neuro: Denies: headache(s) PFS ED PFSH: Medical History Tension headache (~2022) Irregular menses No pertinent past medical history neghx: htn,dm,thyroid,dvt/pe Surgical History Hx of laparoscopy (~04/10/15) Laparoscopy with excision of right paratubal cyst. Performed by Dr. Clay Oleary at [facility] in [place], [place]. Hx of tonsillectomy Patient had tonsils/adnoids removed at the age of 3 and 6 per mother History of placement of ear tubes Patient's mother states she's had 4 different tubes placed in her ears. She's had 7 surgeries on her left ear and 6 surgeries on her right ear. All Performed in [facility] Family History Grandmother Breast cancer maternal--- dx at age 60 Diabetes Maternal Heart disease Maternal Hypertension Maternal Mother Diabetes Hypertension Grandfather Diabetes Maternal Family/Other Stroke Maternal Great Grandmother Denies family history of Colon cancer Ovarian cancer Clotting disorder Hypercholesteremia Uterine cancer Thyroid disease Female Reproductive History: Date of last menstrual period: 09/25/23 Physical Exam Const: COMMON NORMALS: no acute distress, patient oriented x3 and healthy appearing HENMT: COMMON NORMALS: normocephalic and atraumatic HEAD & SCALP: normocephalic and atraumatic Eye: COMMON NORMALS: Equal, round and reactive pupils present and EOMs intact bilaterally PUPIL: Yes Equal, round and reactive pupils present Neck/C-Spine: COMMON NORMALS: full ROM and supple Chest: COMMONS NORMALS: normal inspection of the chest and normal palpation of entire chest wall Resp: COMMON NORMALS: normal respiratory effort, No retractions, No use of accessory muscles and clear to auscultation bilaterally AUSCULTATION: clear to auscultation bilaterally Cardio: COMMON NORMALS: regular rate, regular rhythm and No murmurs present (Cardio) RATE: regular rate RHYTHM: regular rhythm Extremity: COMMON NORMALS: normal to inspection and full ROM Neuro: COMMON NORMALS: patient oriented x3, moves all extremities and no focal motor deficits Psych: COMMON NORMALS: mental status grossly normal, Normal thought process present and cooperative THOUGHT PROCESS: Normal thought process present Skin: COMMON NORMALS: no rashes or lesions noted and no wounds GENERAL SKIN EXAM: no rashes or lesions noted Course Vital Signs: Vital signs: Vital Signs Temperature 98.1 F 10/23/23 23:23 Pulse Rate 106 H 10/23/23 23:23 Respiratory Rate 16 10/23/23 23:23 Blood Pressure 146/93 10/23/23 23:23 Pulse Oximetry 97 10/23/23 23:23 Oxygen Delivery Me thod Room Air 10/23/23 23:23 MDM - Chest Pain Medical Decision Making Patient presents for chest pain is likely pleuritic pain she has no signs of acute coronary syndrome D-dimer is negative no signs of dissection or pulm embolism we will start on Naprosyn patient stable for discharge follow-up PCP return if worsening. Medical Records I reviewed the patient's medical records. Lab Data I reviewed the patient's lab results. 10/23/23 23:49 10/24/23 00:00 Radiology Impressions Chest X-Ray 10/23/23 23:19 IMPRESSION: No acute findings. Laboratory Results WBC 8.78 10^3/uL (3.29-11.43) 10/23/23 23:49 RBC 4.71 10^6/uL (3.85-5.65) 10/23/23 23:49 Hgb 14.90 g/dL (11.27-16.99) 10/23/23 23:49 Hct 45.6 % (36-47) 10/23/23 23:49 MCV 96.8 fl (85-98) 10/23/23 23:49 MCH 31.6 pg (27-33) 10/23/23 23:49 MCHC 32.7 g/dL (30-55) 10/23/23 23:49 RDW 12.4 % (12.1-15.1) 10/23/23 23:49 Plt Count 244 10^3/cmm (157-399) 10/23/23 23:49 MPV 9.4 fL (7.4-10.4) 10/23/23 23:49 Neut % (Auto) 48.6 % 10/23/23 23:49 Lymph % (Auto) 40.4 % 10/23/23 23:49 [place] % (Auto) 9.0 % 10/23/23 23:49 Eos % (Auto) 1.1 % 10/23/23 23:49 Baso % (Auto) 0.6 % 10/23/23 23:49 Neut # (Auto) 4.26 10^3/uL (1.8-7.7) 10/23/23 23:49 Lymph # (Auto) 3.6 10^3/uL (0.8-4.8) 10/23/23 23:49 [place] # (Auto) 0.8 10^3/uL (0.2-0.9) 10/23/23 23:49 Eos # (Auto) 0.1 10^3/uL (0.0-0.8) 10/23/23 23:49 Baso # (Auto) 0.1 10^3/uL (0.0-0.1) 10/23/23 23:49 Nucleated RBC % (auto) 0 % 10/23/23 23:49 Nucleated RBCs # 0.0 /100WBC 10/23/23 23:49 D-Dimer 0.50 ug/mLFEU (0-0.59) 10/23/23 23:49 Sodium 140 mmol/L (136-145) 10/24/23 00:00 Potassium 3.8 mmol/L (3.5-5.1) 10/24/23 00:00 Chloride 104 mmol/L (98-107) 10/24/23 00:00 Carbon Dioxide 27 mmol/L (22-29) 10/24/23 00:00 Anion Gap 12.8 (5-19) 10/24/23 00:00 BUN 12 mg/dL (6-20) 10/24/23 00:00 Creatinine 0.7 mg/dL (0.5-0.9) 10/24/23 00:00 GFR Calculation 105.6 mL/min (90-130) 10/24/23 00:00 Glucose 88 mg/dL (65-115) 10/24/23 00:00 Calculated Osmolality 289 mOsm/kg (285-295) 10/24/23 00:00 Calcium 9.8 mg/dL (8.5-10.5) 10/24/23 00:00 HCG, Qual Negative (Negative) 10/23/23 23:49 All radiology interpretation(s) finalized by discharge Discharge Plan Discharge Patient Disposition: Home Clinical Impression: Atypical chest pain Condition: Stable Prescriptions: New Naprosyn 500 mg tablet 500 mg PO BID PRN (Reason: pain) Qty: 20 0RF No Action sumatriptan succinate 50 mg tablet 50 mg PO Q2H PRN Rx Instructions: do not exceed 4 doses per 24 hrs promethazine-DM 6.25-15 mg/5 mL syrup 5 ml PO Q4H PRN (Reason: cough) Qty: 118 0RF Rx Instructions: Do not exceed more than 30ml/24hour period (6 doses) Discharge Orders: Discharge ED (Routine); Ordered 10/24/23 Ordered By: Manuel Cross Discharge Diet: Advance as tolerated Discharge Activity: Resume usual activity Patient Instructions: Chest Pain (ED), Pleurisy (ED) Coding Level 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
[2023-10-23] MEDS: ketorolac 30 mg/mL INJ 15 MG IVP (23:59)
[2023-10-24 00:11] LABS: HCG, Serum Qual Negative (Negative)
[2023-10-24 00:19] LABS: Basophils # 0.1 10^3/uL (0.0-0.1); Basophils % 0.6 %; Eosinophils # 0.1 10^3/uL (0.0-0.8); Eosinophils % 1.1 %; Hematocrit 45.6 % (36-47); Lymphocytes # 3.6 10^3/uL (0.8-4.8); Lymphocytes % 40.4 %; Mean Corpuscular HGB Conc 32.7 g/dL (30-55); Mean Corpuscular Hemoglobin 31.6 pg (27-33); Mean Corpuscular Volume 96.8 fl (85-98); Mean Platelet Volume 9.4 fL (7.4-10.4); Monocytes # 0.8 10^3/uL (0.2-0.9); Neutrophils # 4.26 10^3/uL (1.8-7.7); Neutrophils % 48.6 %; Nucleated Red Blood Cells % 0 %; Platelet Count 244 10^3/cmm (157-399); Red Blood Count 4.71 10^6/uL (3.85-5.65); Red Cell Distribution Width 12.4 % (12.1-15.1); White Blood Count 8.78 10^3/uL (3.29-11.43)
[2023-10-24 00:25] LABS: Anion Gap 12.8 (5-19); Blood Urea Nitrogen 12 mg/dL (6-20); Calcium 9.8 mg/dL (8.5-10.5); Carbon Dioxide 27 mmol/L (22-29); Chloride 104 mmol/L (98-107); Creatinine Clr Calc Pharmacy 146.6282; Glomerular Filtration Rate 105.6 mL/min (90-130); Glucose 88 mg/dL (65-115); Osmolality Calculated 289 mOsm/kg (285-295); Potassium 3.8 mmol/L (3.5-5.1); Sodium 140 mmol/L (136-145)
== END 2023-10-24 00:51 | disposition home or self-care (01) ==
PROVIDERS: Emergency Provider Emergency Medicine
DX: R07.89 Other chest pain (principal)
CPT/HCPCS: 36415; 71045; 80048; 84703; 85025; 85378; 93005; 96374; 99285; J1885

== ENCOUNTER 2023-11-18 01:07 | Emergency (ER) | payer SELFPAY ==
[2023-11-18 01:13] VITALS: BP 157/92; PULSE 102; RESP 16; TEMP 36.6; O2SAT 99; BMI 43.9
[2023-11-18 01:19] VITALS: BP 157/92; PULSE 97; RESP 16; O2SAT 99
--- NOTE | 2023-11-18 01:22 | ED_ITS ---
HPI - General Adult General: Chief complaint: Upper Respiratory Infection Stated complaint: Ear Pain\Headache Time Seen by Provider: 11/18/23 01:12 Source: patient Mode of arrival: ambulatory Limitations: no limitations History of Present Illness: 23-year-old female states that she has b een having right-sided ear pain and also sinus congestion with maxillary sinus pain she states that she had a slight cough as well feels like she may have a sinus infection she denies any fever she denies any vomiting or diarrhea she denies any worse improving factors. Associated symptoms: Deny chest pain, dyspnea, headache(s), nausea, rash or vomiting Review of Systems Const: Denies: fever(s) or chills Eyes: Denies: eye discomfort ENMT: Reports: sinus pain; Denies: throat pain or dental pain Card: Denies: chest pain Resp: Denies: dyspnea GI: Denies: abdominal pain, nausea, vomiting or diarrhea Musc: Denies: neck pain or back pain Skin/Breast: Denies: rash Neuro: Denies: headache(s) PFSH ED PFSH: Medical History Tension headache (~2022) Irregular menses No pertinent past medical history neghx: htn,dm,thyroid,dvt/pe Surgical History Hx of laparoscopy (~04/10/15) Laparoscopy with excision of right paratubal cyst. Performed by Dr. Clay Oleary at [facility] in [place], [place]. Hx of tonsillectomy Patient had tonsils/adnoids removed at the age of 3 and 6 per mother History of placement of ear tubes Patient's mother states she's had 4 different tubes placed in her ears. She's had 7 surgeries on her left ear and 6 surgeries on her right ear. All Performed in [facility] Family History Grandmother Breast cancer maternal--- dx at age 60 Diabetes Maternal Heart disease Maternal Hypertension Maternal Mother Diabetes Hypertension Grandfather Diabetes Maternal Family/Other Stroke Maternal Great Grandmother Denies family history of Colon cancer Ovarian cancer Clotting disorder Hypercholesteremia Uterine cancer Thyroid disease Physical Exam Const: COMMON NORMALS: no acute distress, patient oriented x3 and healthy appearing HENMT: COMMON NORMALS: normocephalic, atraumatic and TM's normal bilaterally HEAD & SCALP: normocephalic and atraumatic TYMPANIC MEMBRANE: TM's normal bilaterally OTHER: Maxillary sinus tenderness Eye: COMMON NORMALS: Equal, round and reactive pupils present and EOMs intact bilaterally PUPIL: Yes Equal, round and reactive pupils present Neck/C-Spine: COMMON NORMALS: full ROM and supple Chest: COMMONS NORMALS: normal inspection of the chest Resp: COMMON NORMALS: normal respiratory effort Extremity: COMMON NORMALS: normal to inspection and full ROM Neuro: COMMON NORMALS: patient oriented x3, moves all extremities and no focal motor deficits Psych: COMMON NORMALS: mental status grossly normal, Normal thought process present and cooperative THOUGHT PROCESS: Normal thought process present Skin: COMMON NORMALS: no rashes or lesions noted and no wounds GENERAL SKIN EXAM: no rashes or lesions noted Course Vital Signs: Vital signs: Vital Signs Temperature 97.8 F 11/18/23 01:13 Pulse Rate 102 H 11/18/23 01:13 Respiratory Rate 16 11/18/23 01:13 Blood Pressure 157/92 11/18/23 01:13 Pulse Oximetry 99 11/18/23 01:13 Oxygen Delivery Me thod Room Air 11/18/23 01:13 [facility] - General Adult Medical Decision Making Patient presents here with likely sinusitis did give her Decadron here we will place her on Keflex she is follow-up PCP and return if worsening she understands agrees to plan Medical Records I reviewed the patient's medical records. No radiology studies performed this visit Discharge Plan Discharge Patient Disposition: Home Clinical Impression: Sinusitis Condition: Stable Prescriptions: New cephalexin 500 mg capsule 500 mg PO TID 7 Days Qty: 21 0RF No Action sumatriptan succinate 50 mg tablet 50 mg PO Q2H PRN Rx Instructions: do not exceed 4 doses per 24 hrs promethazine-DM 6.25-15 mg/5 mL syrup 5 ml PO Q4H PRN (Reason: cough) Qty: 118 0RF Rx Instructions: Do not exceed more than 30ml/24hour period (6 doses) Naprosyn 500 mg tablet 500 mg PO BID PRN (Reason: pain) Qty: 20 0RF Discharge Orders: Discharge ED (Routine); Ordered 11/18/23 Ordered By: Manuel Cross Discharge Diet: Advance as tolerated Discharge Activity: Resume usual activity Patient Instructions: Sinusitis (ED) Coding Level of Care Code 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
[2023-11-18] MEDS: dexamethasone 10 mg/mL INJ IM (01:32)
[2023-11-18 01:40] VITALS: PULSE 97; RESP 16; O2SAT 99
== END 2023-11-18 01:40 | disposition home or self-care (01) ==
PROVIDERS: Emergency Provider Emergency Medicine
DX: J32.9 Chronic sinusitis, unspecified (principal)
CPT/HCPCS: 96372; 99284; J1100

== ENCOUNTER 2024-01-09 00:43 | Emergency (ER) | payer SELFPAY ==
[2024-01-09 00:54] VITALS: BP 137/91; PULSE 103; RESP 15; TEMP 36.8; O2SAT 98; BMI 42.0
[2024-01-09 01:00] VITALS: BP 137/91; PULSE 107; RESP 16; O2SAT 98
--- NOTE | 2024-01-09 01:26 | ED_ITS ---
HPI - Headache General: Chief Complaint: Headache Stated Complaint: Migraine Time Seen by Provider: 01/09/24 00:47 History of Present Illness: Patient presents to the ER with complaints of a migraine left-sided head for the last 3 days. She tried her sumatriptan hand, Tylenol and Benadryl combination that usually works and it did not work at this time. This is the patient's normal migraine is left-sided it starts at the base of her neck goes along her little her left side of her head up and behind her eye. Patient has been nauseous but has not vomited, she has had photophobia. Review of Systems General: Reports: 10 or more systems reviewed and unremarkable except in HPI and below PFSH ED PFSH: Medical History Tension headache (~2022) Irregular menses No pertinent past medical history neghx: htn,dm,thyroid,dvt/pe Surgical History Hx of laparoscopy (~04/10/15) Laparoscopy with excision of right paratubal cyst. Performed by Dr. Clay phillips at [facility] in [place], [place]. Hx of tonsillectomy Patient had tonsils/adnoids removed at the age of 3 and 6 per mother History of placement of ear tubes Patient's mother states she's had 4 different tubes placed in her ears. She's had 7 surgeries on her left ear and 6 surgeries on her right ear. All Performed in [facility] Family History Grandmother Breast cancer maternal--- dx at age 60 Diabetes Maternal Heart disease Maternal Hypertension Maternal Mother Diabetes Hypertension Grandfather Diabetes Maternal Family/Other Stroke Maternal Great Grandmother Denies family history of Colon cancer Ovarian cancer Clotting disorder Hypercholesteremia Uterine cancer Thyroid disease Physical Exam Const: COMMON NORMALS: no acute distress, average body habitus, patient oriented x3, no limitations, healthy appearing, alert and well nourished HENMT: COMMON NORMALS: normocephalic, atraumatic, hearing grossly normal bilaterally, external ears normal, Normal external nose present and moist oral mucous membranes HEAD & SCALP: normocephalic and atraumatic NOSE: Normal external nose present EXTERNAL EAR: Yes external ears normal Eye: COMMON NORMALS: Equal, round and reactive pupils present, EOMs intact bilaterally, conjunctivae normal and no scleral icterus CONJUNCTIVA: Yes conjunctivae normal PUPIL: Yes Equal, round and reactive pupils present Neck/C-Spine: COMMON NORMALS: full ROM, no lymphadenopathy, supple, no meningeal signs, no JVD and Thyroid normal THYROID: Thyroid normal Chest: COMMONS NORMALS: normal inspection of the chest and normal palpation of entire chest wall Resp: COMMON NORMALS: normal respiratory effort, No retractions, No use of accessory muscles and clear to auscultation bilaterally AUSCULTATION: clear to auscultation bilaterally Cardio: COMMON NORMALS: no JVD, regular rate, regular rhythm, S1 normal heart sound present, S2 normal heart sound present, No gallops present (Cardio) and No clicks present (Cardio) RATE: regular rate RHYTHM: regular rhythm HEART SOUNDS: S1 normal heart sound present and S2 normal heart sound present GI: COMMON NORMALS: Normal to inspection, nondistended, normoactive bowel sounds present, Soft to palpation, non-tender, No hepatosplenomegaly present and no masses PALPATION: Yes Soft to palpation and Yes No hepatosplenomegaly present Neuro: COMMON NORMALS: patient oriented x3 SENSORIUM/ORIENTATION: Yes alert MENINGEAL SIGNS: Yes no meningeal signs Course Vital Signs: Vital signs: Vital Signs Temperature 98.2 F 01/09/24 00:54 Pulse Rate 107 H 01/09/24 02:00 Respiratory Rate 15 01/09/24 02:00 Blood Pressure 142/83 01/09/24 02:00 Pulse Oximetry 98 01/09/24 02:00 Oxygen Delivery Me thod Room Air 01/09/24 00:54 MDM - Headache Medical Decision Making Patient presented with a history of migraine, patient was given 30 mg Toradol, Reglan 10 mg, 1 L bolus normal saline, 500 mg Depacon and patient pain improved drastically and patient was discharged home. Differential Diagnosis Likely migraine and tension headache Medical Records I reviewed the patient's medical records. Lab Data I reviewed the patient's lab results. No radiology studies performed this visit Discharge Plan Discharge Patient Disposition: Home Clinical Impression: Migraine Qualifiers: Migraine type: unspecified Status migrainosus presence: with status migrainosus Intractability: not intractable Qualified Code(s): G43.901 - Migraine, unspecified, not intractable, with status migrainosus Condition: Stable Prescriptions: No Action sumatriptan succinate 50 mg tablet 50 mg PO Q2H PRN Rx Instructions: do not exceed 4 doses per 24 hrs promethazine-DM 6.25-15 mg/5 mL syrup 5 ml PO Q4H PRN (Reason: cough) Qty: 118 0RF Rx Instructions: Do not exceed more than 30ml/24hour period (6 doses) Naprosyn 500 mg tablet 500 mg PO BID PRN (Reason: pain) Qty: 20 0RF Discharge Orders: Discharge ED (Routine); Ordered 01/09/24 Ordered By: Cullen Baltazar Referrals: Mabel Sheikh FNP [Primary Care Provider] - 1 week Patient Instructions: Migraine Headache (ED) Activity Restrictions/Additional Instructions: Thank you for choosing [facility] for your healthcare needs today. Please realize that you were seen in the emergency department and that we are providing you with an emergency medical screening exam and this may not be a complete and all exclusive of all testing and/or medical workup we may need to determine your element or severity of your illness. It is very important that you follow-up as instructed with your primary care provider or specialist for the additional evaluation and to discuss your medical treatment plan. You may return to the emergency department should you have concerns or if your condition changes or worsens in any way. 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
[2024-01-09 01:30] VITALS: BP 126/83; PULSE 94; RESP 14; O2SAT 99
[2024-01-09] MEDS: sodium chloride 0.9% 1,000 ML 999 ML IV (01:43)
[2024-01-09] MEDS: ketorolac 30 mg/mL INJ IVP (01:44)
[2024-01-09] MEDS: metoclopramide 5 mg/mL SDV 2 mL 10 MG IVP (01:44)
[2024-01-09] MEDS: valproic acid inj 500 MG in sodium chloride 0.9% 50 ML 55 MG IV (01:44)
[2024-01-09 02:00] VITALS: BP 142/83; PULSE 107; RESP 15; O2SAT 98
[2024-01-09 02:30] VITALS: BP 132/83; PULSE 101; RESP 15; O2SAT 95
== END 2024-01-09 03:00 | disposition home or self-care (01) ==
PROVIDERS: Emergency Provider Emergency Medicine; PCP Nurse Practitioner Family
DX: G43.901 Migraine, unspecified, not intractable, with status migrainosus (principal)
CPT/HCPCS: 96365; 96375; 99284; J1885; J2765; J3490; J7030